=== PATIENT | male | born 1955 | race Caucasian/White ===

== ENCOUNTER 2020-05-02 09:45 | Outpatient (CLI) | payer OTHER, SELFPAY ==
--- NOTE | 2020-05-02 10:34 | ECG_ITS ---
Measurements Intervals [place] Rate: 52 P: 60 IA: 232 QRS: 10 QRSD: 105 T: 4 QT: 425 QTc: 395 Interpretive Statements SINUS BRADYCARDIA WITH FIRST DEGREE AV BLOCK DELAYED PRECORDIAL R/S TRANSITION VOLTAGE CRITERIA FOR LVH BORDERLINE T WAVE ABNORMALITY- INFERIOR LEADS ABNORMAL ECG Electronically Signed On 05-02-2020 11:35:50 STEAM ENGINEER by Juan Francisco Jett D.O.
[2020-05-02 11:16] LABS: Basophils Percent Auto 0.6 % (0.2-1.2); Eosinophils Absolute Auto 0.3 K/mm3 (0-0.3); Eosinophils Percent Auto 6.3 % (0-4.4); Hematocrit 44.6 % (42.0-52.0); Hemoglobin 15.1 g/dL (14.0-18.0); Immature Granulocyte Absolute 0.01 K/mm3 (0.00-0.031); Immature Granulocyte Percent A 0.2 % (0-0.5); Lymphocytes Absolute Auto 2.09 K/mm3 (0.9-3.2); Lymphocytes Percent Auto 38.6 % (18.3-44.2); Mean Corpuscular HGB Conc 33.9 g/dl (32-36); Mean Corpuscular Hemoglobin 31.8 pg (26-34); Mean Corpuscular Volume 93.9 fl (80-100); Mean Platelet Volume 9.2 fl (7.4-10.4); Monocytes Absolute Auto 0.5 K/mm3 (0.1-0.6); Monocytes Percent Auto 9.6 % (2.6-8.5); Neutrophils Absolute Auto 2.4 K/mm3 (1.3-6.7); Neutrophils Percent Auto 44.7 % (45.5-73.1); Platelet Count Result 191 k/mm3 (150-375); Red Blood Count 4.75 M/mm3 (4.6-6.20); Red Cell Distribution Width 12.6 % (11.5-14.5); White Blood Count 5.4 K/mm3 (4.5-10.0)
[2020-05-02 11:21] LABS: INR 0.9; Prothrombin Time 12.7 Seconds (11.1-14.7)
[2020-05-02 11:22] LABS: Partial Thromboplastin Time 27.3 SECONDS (22.3-36.8)
[2020-05-02 11:28] LABS: Alanine Aminotransferase 9 U/L (4-50); Albumin Level 4.5 g/dL (3.5-5.1); Alkaline Phosphatase 51 U/L (38-126); Anion Gap 4 mmol/L (8-16); Aspartate Amino Transferase 26 U/L (17-59); Bilirubin,Total 0.9 mg/dL (0.2-1.3); Blood Urea Nitrogen 17 mg/dL (9-20); Calcium 9.3 mg/dL (8.4-10.2); Carbon Dioxide 30 mmol/L (22-30); Chloride 103 mmol/L (98-107); Estimated Glomerular Filt Rate > 60; Glucose 94 mg/dL (75-110); Potassium 4.6 mmol/L (3.4-5.0); Sodium 137 mmol/L (137-145)
== END 2020-05-02 09:46 | disposition home or self-care (01) ==
LOC: ANHSURGERY 09:53
PROVIDERS: PCP Internal Medicine; Visit Provider Urology
DX: C61 Malignant neoplasm of prostate (principal); I10 Essential (primary) hypertension; Z01.818 Encounter for other preprocedural examination; I44.0 Atrioventricular block, first degree
CPT/HCPCS: 36415; 80053; 85025; 85610; 85730; 86850; 86900; 86901; 87086; 93005

== ENCOUNTER → 2020-05-10 00:58 | Outpatient (CLI) | payer OTHER, SELFPAY ==
[2020-05-10 19:48] LABS: SARS-CoV-2 RNA PCR Negative
== END ==
PROVIDERS: PCP Internal Medicine; Visit Provider Urology
DX: Z01.812 Encounter for preprocedural laboratory examination (principal); Z20.822 Contact with and (suspected) exposure to COVID-19
CPT/HCPCS: C9803; U0003; U0005

== ENCOUNTER 2020-05-13 13:48 | Inpatient (IN) | payer OTHER, SELFPAY ==
[2020-05-02 10:14] VITALS: BP 160/94; PULSE 56; RESP 20; TEMP 36.9; O2SAT 99; BMI 27.1
--- NOTE | 2020-05-12 14:50 | WPDANESEPPF ---
Anes - Initial Pre Proc Eval Procedure: Operation Date: 05/13/20 08:30 Proposed Procedures p Robotic Assisted Laparoscopic Prostatectomy, Possible Pelvic Lymph Node Dissection - Elton Mendoza MD Date/Time: 05/12/20 14:50 Surgeon: Elton Mendoza MD Pre Op Diagnosis: Prostate Cancer Patient Data Age: 65 Gender: M Height: 1.85 m Weight: 93.4 kg Last Vital Signs Temp 36.9 C 05/02/20 10:14 Pulse 56 L 05/02/20 10:14 Resp 20 05/02/20 10:14 BP 160/94 H 05/02/20 10:14 Pulse Ox 99 05/02/20 10:14 Allergies Allergy/AdvReac Type Severity Reaction Status Date / Time No Known Allergies Allergy Verified 05/13/20 06:54 Home Medications Medication Instructions Recorded Confirmed Type metoprolol tartrate 50 mg QAM 05/02/20 05/13/20 History Patient hx anesthesia problems: none Family hx anesthesia problems: none PMFSH Past Medical History Medical History (Updated 05/12/20 @ 14:51 by Marlon Lee MD) HTN (hypertension) Prostate CA Social History Social History Smoking packs per day: 2 Smoking cigarettes per day: 40.0 Years smoked: 11 Smoking pack-years: 22.00 Smoking status: Former smoker Second hand tobacco smoke exposure: No Additional smoking assessment comments: STATES 2PK/DAY/AGE 15 TO 26 Alcohol intake: current Drinks per week: 35 Substance use: never Substance use type: does not use Living arrangements: with family Spiritual care concerns: No Anes - Eval Final PreProcedure Day of Procedure 05/12/20 14:50 Patient weight: overweight Heart: regular rate and rhythm Lungs: clear to auscultation and normal air movement Airway: Mallampati scale class II Neurological: alert and oriented Last oral intake: >/= 8 hours ASA classification: III Emergent: no Anesthetic plan: proceed Anesthesia type and monitoring: general ETT Informed Consent: The patient's anesthetic plan and its attendant risks and benefits were discussed with the patient/family/POA. Questions were solicited and answers provided to the satisfaction of the patient/family/POA.
[2020-05-13] VITALS (12 sets, daily range): BP systolic 125–158; BP diastolic 69–92; PULSE 56–90; RESP 12–18; TEMP 35.9–36.7; O2SAT 96–100; BMI 25.8
[2020-05-13] MEDS: LACTATED RINGERS 1,000 ML 30 ML IV CONT ×2 (07:08→13:13)
--- NOTE | 2020-05-13 07:26 | WPDHPUPDATE1 ---
History and Physical Update Update Date/Time: 05/13/20 07:26 History and Physical has been reviewed, including an updated exam of the patient. There are NO changes in the patient's condition. Risks, benefits, and alternatives have been discussed and questions answered. Patient agrees to proceed with procedure. Proceed with robotic assist nerve sparing prostatectomy with possible PLND
[2020-05-13] MEDS: ceFAZolin 2 GM/D5W 50 ML 2 GM/50 ML BAG IVPB (08:28)
[2020-05-13] MEDS: BUPIVACAINE HCL 0.5% PF 30 ML VIAL INFILTRATE (09:21)
--- NOTE | 2020-05-13 12:55 | P.OP_ITS ---
Procedure Note - Detailed Date of procedure: 05/13/20 Pre-op diagnosis: Prostate Cancer Post-op diagnosis: other (Supraumbilical rectus fascia defect) Procedure performed: Robotic assisted nerve-sparing prostatectomy, repairs supraumbilical defect(hernia repair) Description of procedure: Patient is taken the operative suite and correctly identified. Once anesthesia was obtained he was placed in a low lying dorsal lithotomy position and prepped and draped usual sterile fashion. Sixteen Norwegian Martines was inserted with 20 cc. Supraumbilical incision was the made and carried down to the rectus fascia. He does have a defect just superior to the umbilicus. We state superior to that. Veress needle was inserted and 15 mmHg pressure was placed. The abdomen was then entered under direct vision using the trocar. Appropriate working ports were then placed in their locations. Patient was placed in steep Trendelenburg and the robot was docked. Posterior approach was then performed. Seminal vesicles were dissected out in their entirety vessels were transected. Space between the rectum and the prostate was developed. Bladder was taken down in a standard fashion. Space of Retzius was developed bilaterally. Dorsal venous complex was isolated using 0 Vicryl secured to the pubic bone. Bladder was then entered anteriorly. Patient had a small median lobe which was excised. We then did a nerve-sparing in the standard fashion after taking down the pedicles were clipped. Dorsal venous complex was then transected. Urethra was also transected. A Kulwant stitch was then placed using 0 Vicryl. Anastomosis was performed using V lock in a running fashion. There was good approximation mucosa mucosa. Sixteen Norwegian Martines was inserted inflated with 10 cc of sterile water. The bladder was filled with 120 cc. There is no evidence of extravasation at this time. Corby aguilar drain was then placed in the 3rd port site. This was secured. We then did a closure of the defect ( small hernia repair) using 0 Vicryl in a running fashion. The robot was undocked. The specimens brought out through the midline incision after it had been placed in Endo-Catch bag earlier. Rectus fascia was closed using 0 Vicryl. Skin was closed using subcuticular stitches. 1% lidocaine was used anesthetized skin. He is taken recovery stable condition. Anesthesia: GETA Surgeon: Elton Mendoza MD Estimated blood loss (mL): 50 Drains: Yes Packing: No Pathology: yes Complications: No immediate complications Condition: stable Disposition: PACU
--- NOTE | 2020-05-13 14:30 | ADMGEN ---
This patient, Martin Munoz, was admitted to 2 Medical Room 253-. Patient/family oriented to hospital policies and general routines including ID bracelet, bed and alarms, visiting hours, pain management, procedures, bathroom and other care routines, personal items, smoking policy, room service/diet, and visiting hours. Information on how to activate the Rapid Response Team has been discussed. Patient/Family are encouraged to report perceived risks to care and to ask questions if they do not understand what they are told or what they should do.
[2020-05-13] MEDS: MORPHINE SULFATE (*CRX) 2 MG/ML INJ 1 MG IV PUSH (15:27)
[2020-05-13] MEDS: LACTATED RINGERS 1,000 ML 125 ML IV CONT ×2 (15:27→23:20)
[2020-05-13] MEDS: ONDANSETRON INJ 4 MG/2 ML VIAL IV PUSH (15:28)
[2020-05-13] MEDS: KETOROLAC 30 MG/ML VIAL (*BKC) IV PUSH (16:34)
[2020-05-14] VITALS (7 sets, daily range): BP systolic 142–160; BP diastolic 66–88; PULSE 70–95; RESP 16–18; TEMP 36.6–37.3; O2SAT 94–97
[2020-05-14 05:08] LABS: Hemoglobin 11.3 g/dL (14.0-18.0)
[2020-05-14 05:19] LABS: Anion Gap 6 mmol/L (8-16); Blood Urea Nitrogen 16 mg/dL (9-20); Calcium 7.9 mg/dL (8.4-10.2); Carbon Dioxide 25 mmol/L (22-30); Chloride 103 mmol/L (98-107); Estimated CRCL calculation 82 ml/min; Estimated Glomerular Filt Rate > 60; Glucose 111 mg/dL (75-110); Sodium 134 mmol/L (137-145)
[2020-05-14] MEDS: HYDROcodone/acetaminophen (*CRX) 5-325 MG TABLET 1 TAB PO ×3 (05:35→17:32)
[2020-05-14] MEDS: LACTATED RINGERS 1,000 ML 125 ML IV CONT ×3 (07:22→22:58)
--- NOTE | 2020-05-14 07:50 | WPDUROPN2 ---
Progress Note: A&P Assessment and Plan (1) Prostate CA: Code(s): C61 - Malignant neoplasm of prostate Status: Acute Assessment and Plan: postoperative day 1. Doing well overall. Will continue increase activity with ambulation today. ANTONIETA with minimal output and most likely removed drained at lunchtime. This hopefully will make his right side discomfort better. If doing well later today may discharge home with Martines catheter. Subjective Subjective Date/Time Seen: 05/14/20 07:50 Post Op day: 1 (Robotic assisted nerve-sparing prostatectomy) Principal diagnosis: adenocarcinoma prostate Interval history: overall patient is doing well but does complain of some right side discomfort where the drain is. Urine output appears to be increasing this morning. Patient is up sitting in a chair at the time my visit Review of Systems Review of Systems: All systems reviewed & are unremarkable except as noted in HPI and below Exam Const: General: cooperative, alert, awake and uncomfortable ( due to discomfort and right side) Eyes: General: appearance normal, both eyes and all related structures Chest: Chest palpation & inspection: normal inspection of the chest Resp: Effort & Inspection: normal respiratory effort Cardio: Rate: regular rate Rhythm: regular rhythm GI: GI Palp: Yes Soft to palpation Urinary Catheter: Urinary Catheter: patent and draining and urine clear Objective Data Vital Signs Vital Signs: Vital Signs - 24 hr 05/13/20 13:13 05/13/20 13:25 05/13/20 13:40 Temperature 36.1 C L Pulse Rate 56 L 61 68 Respiratory Rate 14 14 12 Blood Pressure 157/80 H 151/92 H 158/91 H Pulse Oximetry 100 98 98 05/13/20 13:55 05/13/20 14:10 05/13/20 14:25 Temperature 36.0 C L Pulse Rate 61 65 62 Respiratory Rate 14 14 16 Blood Pressure 148/89 H 142/83 H 148/82 H Pulse Oximetry 96 97 97 05/13/20 14:40 05/13/20 15:10 05/13/20 16:10 Temperature 35.9 C L 36.3 C L 36.3 C L Pulse Rate 70 72 85 Respiratory Rate 18 16 16 Blood Pressure 150/86 H 146/84 H 149/87 H Pulse Oximetry 98 97 98 05/13/20 18:10 05/13/20 20:42 05/14/20 00:42 Temperature 36.7 C 36.7 C 36.9 C Pulse Rate 90 89 94 Respiratory Rate 18 18 18 Blood Pressure 154/85 H 125/69 142/66 H Pulse Oximetry 99 96 97 Intake/Output Intake/Output: Intake & Output 05/11/20 05/12/20 05/13/20 05/14/20 23:59 23:59 23:59 23:59 Intake Total 1350 1000 Output Total 128 Balance 1222 1000 Meds/Results Medications: Active Medications Generic Name Dose Route Start Last Admin Trade Name Freq PRN Reason Stop Dose Admin Hydrocodone Bitart/Acetaminophen 1 tab 05/13/20 14:57 05/14/20 05:35 Hydrocodone/Acetaminophen (*Crx) 5-325 Mg Tablet PO 1 tab Q6H PRN Administration Pain Rated 1-3 Hydrocodone Bitart/Acetaminophen 2 tab 05/13/20 14:57 Hydrocodone/Acetaminophen (*Crx) 5-325 Mg Tablet PO Q6H PRN Pain Rated 4-6 Hyoscyamine 0.125 mg 05/13/20 14:57 Hyoscyamine Sulfate 0.125 Mg Tablet SUBLINGUAL Q4H PRN Bladder Spasm Lactated Ringer's 1,000 mls @ 125 mls/hr 05/13/20 14:57 05/14/20 07:22 Lr - Lactated Ringers Iv IV CONT 125 mls/hr .Q8H NNEKA Administration Ketorolac Tromethamine 30 mg 05/13/20 14:57 05/13/20 16:34 Ketorolac 30 Mg/Ml Vial (*Bkc) IV PUSH 05/14/20 14:58 30 mg Q6H PRN Administration Pain Rated 4-6 Levofloxacin 500 mg 05/14/20 09:00 Levofloxacin Tab 500 Mg Tablet PO DAILY NNEKA Metoprolol Tartrate 50 mg 05/14/20 09:00 Metoprolol Tartrate 50 Mg Tab PO QAM NNEKA Morphine Sulfate 1 mg 05/13/20 14:57 05/13/20 15:27 Morphine Sulfate (*Crx) 2 Mg/Ml Inj IV PUSH 1 mg Q2H PRN Administration Pain Rated 7-10 Naloxone HCl 0.1 mg 05/13/20 14:57 Naloxone Hcl 0.4 Mg/Ml Vial IV PUSH Q2M PRN Opiate Reversal Ondansetron HCl 4 mg 05/13/20 14:57 05/13/20 15:28 Ondansetron Inj 4 Mg/2 Ml Vial IV PUSH 4
--- NOTE | 2020-05-14 08:02 | WPDANESPN ---
Anes - Prog Note Post-Op Date/Time: 05/14/20 08:02 Cardiovascular status: normal Respiratory status: normal Airway patency: baseline Mental status: baseline Post-Op hydration status: normal Vital Signs: Last Vital Signs Temp 36.6 C 05/14/20 04:42 Pulse 86 05/14/20 04:42 Resp 18 05/14/20 04:42 BP 159/78 H 05/14/20 04:42 Pulse Ox 96 05/14/20 04:42 Pain Score (VAS): 05/14 I/O: Intake & Output 05/13/20 05/14/20 05/14/20 23:59 07:59 15:59 Intake Total 1000 1000 Balance 1000 1000 Laboratory Tests 05/14/20 04:54 05/14/20 04:54 05/14/20 05/14/20 04:54 04:54 Hgb 11.3 L D Hct 33.0 L Sodium 134 L Potassium 4.0 Chloride 103 Carbon Dioxide 25 Anion Gap 6 L BUN 16 Creatinine 0.90 Estim Creat Clear Calc 82 Estimated GFR > 60 Glucose 111 H Calcium 7.9 L Post-procedural complaints: none Patient Feedback: Patient satisfied with anesthetic care.
[2020-05-14] MEDS: METOPROLOL TARTRATE 50 MG TAB PO (08:18)
[2020-05-14] MEDS: MORPHINE SULFATE (*CRX) 2 MG/ML INJ 1 MG IV PUSH ×2 (08:28→14:22)
--- NOTE | 2020-05-14 15:57 | PC.NURSE ---
Brii Duval on floor and pulled ANTONIETA drain to RLQ out, Economic Development Specialist placed dry dressing.
[2020-05-15 05:39] VITALS: BP 166/80; PULSE 93; RESP 20; TEMP 36.8; O2SAT 96
[2020-05-15] MEDS: LACTATED RINGERS 1,000 ML 125 ML IV CONT (07:11)
[2020-05-15 07:42] VITALS: PULSE 80
[2020-05-15] MEDS: METOPROLOL TARTRATE 50 MG TAB PO (07:42)
--- NOTE | 2020-05-15 08:51 | WPDUROPN2 ---
Progress Note: A&P Assessment and Plan (1) Prostate CA: Code(s): C61 - Malignant neoplasm of prostate Status: Acute Assessment and Plan: Okay to discharge home today. Patient's pain is well controlled today. Subjective Subjective Date/Time Seen: 05/15/20 08:51 Post Op day: 2 (Robotic assisted nerve-sparing prostatectomy) Principal diagnosis: adenocarcinoma prostate Interval history: overall patient is doing well but does complain of slight nausea but is tolerating food, his pain is much improved since the ANTONIETA drain was removed yesterday. Urine output appears clear and yellow. Patient has been up ad violet and feels good enough to go home. Review of Systems Cardiovascular: Cardiovascular: Denies chest pain Respiratory: Respiratory: Reports no additional respiratory complaints Gastrointestinal: Gastrointestinal: Reports abdominal pain (at incision sites only), Reports nausea and Denies vomiting Genitourinary: Genitourinary: Denies hematuria Exam Resp: Effort & Inspection: normal respiratory effort Cardio: Rate: regular rate GI: Inspection: incision (ANTONIETA drain incision is open, covered with dry dressing, draining scant blood) GI Palp: Yes Soft to palpation and Yes Tenderness to palpation present (GI) (at inicisons only, all are well approximated, no edema or draining present) : General: Yes no CVA tenderness Urinary Catheter: Urinary Catheter: patent and draining and urine clear Extrem: General: no edema Objective Data Vital Signs Vital Signs: Vital Signs - 24 hr 05/14/20 09:57 05/14/20 12:42 05/14/20 18:26 Temperature 98.4 F 98.4 F 98.8 F Pulse Rate 70 76 83 Respiratory Rate 16 16 18 Blood Pressure 151/83 H 160/88 H 156/79 H Pulse Oximetry 97 96 95 05/14/20 20:59 05/15/20 05:39 05/15/20 07:42 Temperature 99.1 F 98.3 F Pulse Rate 95 93 80 Respiratory Rate 18 20 Blood Pressure 155/88 H 166/80 H Pulse Oximetry 94 96 Intake/Output Intake/Output: Intake & Output 05/12/20 05/13/20 05/14/20 05/15/20 23:59 23:59 23:59 23:59 Intake Total 1350 4000 1390 Output Total 128 2790 1800 Balance 1222 1210 -410 Meds/Results Medications: Active Medications Generic Name Dose Route Start Last Admin Trade Name Freq PRN Reason Stop Dose Admin Hydrocodone Bitart/Acetaminophen 1 tab 05/13/20 14:57 05/14/20 17:32 Hydrocodone/Acetaminophen (*Crx) 5-325 Mg Tablet PO 1 tab Q6H PRN Administration Pain Rated 1-3 Hydrocodone Bitart/Acetaminophen 2 tab 05/13/20 14:57 Hydrocodone/Acetaminophen (*Crx) 5-325 Mg Tablet PO Q6H PRN Pain Rated 4-6 Hyoscyamine 0.125 mg 05/13/20 14:57 Hyoscyamine Sulfate 0.125 Mg Tablet SUBLINGUAL Q4H PRN Bladder Spasm Lactated Ringer's 1,000 mls @ 125 mls/hr 05/13/20 14:57 05/15/20 07:11 Lr - Lactated Ringers Iv IV CONT 125 mls/hr .Q8H NNEKA Administration Levofloxacin 500 mg 05/14/20 09:00 05/15/20 07:42 Levofloxacin Tab 500 Mg Tablet PO 500 mg DAILY NNEKA Administration Metoprolol Tartrate 50 mg 05/14/20 09:00 05/15/20 07:42 Metoprolol Tartrate 50 Mg Tab PO 50 mg QAM NNEKA Administration Morphine Sulfate 1 mg 05/13/20 14:57 05/14/20 14:22 Morphine Sulfate (*Crx) 2 Mg/Ml Inj IV PUSH 1 mg Q2H PRN Administration Pain Rated 7-10 Naloxone HCl 0.1 mg 05/13/20 14:57 Naloxone Hcl 0.4 Mg/Ml Vial IV PUSH Q2M PRN Opiate Reversal Ondansetron HCl 4 mg 05/13/20 14:57 05/13/20 15:28 Ondansetron Inj 4 Mg/2 Ml Vial IV PUSH 4 mg Q6H PRN Administration Nausea And Vomiting
--- NOTE | 2020-05-15 09:03 | PM.DS ---
DS: Admitting Diagnosis Admitting Diagnosis Admitting Diagnosis: Prostate Cancer DS: Discharge Diagnosis Discharge Diagnosis (1) Prostate CA: Code(s): C61 - Malignant neoplasm of prostate Status: Acute DS: Summary Hospital Course Hospital Course: See below. Time Spent with Patient Time attestation: Patient underwent a Robotic assisted nerve-sparing prostatectomy on 05/13/[address] Colby Mendoza. He tolerated the procedure well and went to recovery in stable condition. He then was transferred to the floor for further obsveration. Post operative day one, came with nausea and moderate abdominal pain that was mildly controlled with Morphine. His ANTONIETA drain was putting out very little bloody drainage therefore was removed in the afternoon of 05/14/2020. He did much better overnight after the drain was removed with pain. He is able to tolerate his diet better today and is passing flatus. His catheter is draining well and he has been up ad violet. He will be discharged home today to resume previous home medications in addition to Hydrocodone, Levsin, Bactrim and Ondansetron. He is to avoid straining with activity as tolerated, diet as tolerated. Exam Resp: Effort & Inspection: normal respiratory effort Cardio: Rate: regular rate GI: GI Palp: Yes abdominal tenderness, No Soft to palpation and Yes Tenderness to palpation present (GI) : General: Yes no CVA tenderness Urinary Catheter: Urinary Catheter: patent and draining and urine clear Extrem: General: no edema DS: Data Data Completed and Pending Pending studies at discharge: Pending at discharge 05/13/20 12:41 Surgical [PTH] Routine Discharge Plan Discharge Attending physician on discharge: Elton Mendoza Discharging Clinician: Brii Duval Anticipated Discharge Date/Time: 05/15/20 08:55 Patient Disposition: Home, Self-Care Activity: may shower, no straining and may drive after 2 weeks Diet: as tolerated Wound Care Instructions: keep dressing dry and change dressing daily Discharge Instructions: Follow up for Cystogram next week on 05/20/2020 at 9:30am, the Cystogram will be performed at 10am. You will go to Radiology to have your Cystogram done at the [facility]. After your Cystogram, come to the office for catheter removal pending cystogram results. Keep drain incision clean with soap and water and pat dry with a towel. Apply a clean, dry, dressing after each shower and as needed when saturated. Ok to get catheter wet and to wash catheter where it inserts into the penis. Call if you develop a fever >101 degrees, blood in your urine, cloudy or malodorous urine, incisional drainage or edema/redness. Do not immerse your body in water such as: hot tubs, swimming pools or bath tubs until further notified. Do not drive on pain medication and for two weeks. Do not do any heavy lifting or straining. Patient Instructions: Antibiotic Form Stand Alone Forms: General Discharge Information Follow-up/Referrals: Elton Mendoza MD [Physician] - Discharge Medications: New hydrocodone-acetaminophen 5-325 mg tablet 1 tablet PO Q6H PRN (Reason: pain) Qty: 20 RF: 0 hyoscyamine sulfate [Anaspaz] 0.125 mg Tablet,Disintegrating 0.125 mg sublingual Q4H PRN (Reason: Bladder Spasm) Qty: 20 RF: 0 sulfamethoxazole-trimethoprim [Bactrim DS] 800-160 mg tablet 1 tablet PO DAILY Qty: 5 RF: 0 ondansetron 4 mg tablet,disintegrating 4 mg PO Q8H PRN (Reason: nausea and vomiting) Qty: 10 RF: 0 Continued metoprolol tartrate 50 mg tablet 50 mg QAM RF: 0 Date of admission: 05/13/20 13:48 Primary Care Provider: Tony,Myke Lopez Admitting Provider: Elton Mendoza Attending physician on admission: Elton Mendoza Condition: Stable
== END 2020-05-15 10:40 | disposition home or self-care (01) | DRG 708 ==
LOC: ANH2MED 14:38
PROVIDERS: Admitting Provider Urology; PCP Internal Medicine; Visit Provider Urology
PROC: 0VT04ZZ Resection of Prostate, Percutaneous Endoscopic Approach (ICD-10-PCS; CPT 55867; principal; 2020-05-13 08:30)
DX: C61 Malignant neoplasm of prostate (principal); K43.9 Ventral hernia without obstruction or gangrene; I10 Essential (primary) hypertension; Z87.891 Personal history of nicotine dependence
CPT/HCPCS: 36415; 80048; 85014; 85018; 88307; 88309; A9270; C9803; J0690; J1100; J1170; J1885; J2250; J2270; J2405; J2704; J2710; J3010; J7030; J7120; Q9968; U0003; U0005

== ENCOUNTER 2020-05-20 09:41 | Outpatient (CLI) | payer OTHER, SELFPAY ==
--- NOTE | ~2020-05-20 | XR_ITS ---
EXAMINATION: XR cystogram EXAM DATE: 05/20/2020 10:49 INDICATION: Prostate cancer. TECHNIQUE: Fluoroscopy used during XR cystogram performed through Martines catheter in place on patient arrival. Dose reduction digital pulsed fluoroscopy was used at 4 frames per second with DAP 33 Gycm2 . No prior study. FINDINGS: Contrast infused through Martines catheter. Patient tolerated approximately 250 mL of contras t infusion without feeling discomfort. There was no contrast extravasation. Post void images were attempted including obliques, but patient never drained his bladder. Potentiall y the tip and side-port both may have been temporarily positionally blocked, or patient could have at [place] or neurogenic bladder. Patient did not feel his bladder distended during these images. Consider r epositioning Martines to see if there is additional drainage. Clinically correlate. Incidental note made of extensive subcutaneous emphysema throughout the thighs and anterior aspect of the abdominal wall subcutaneous fat (see oblique KUB images). Postoperative? IMPRESSION: 1. No contrast extravasation. 2. Pear-shaped distended bladder which did not empty. See above. 3. Extensive subcutaneous emphysema along size, lower abdomen. Reviewed, dictated and finalized at location A.
== END 2020-05-20 09:42 | disposition home or self-care (01) ==
PROVIDERS: PCP Internal Medicine; Visit Provider Urology
DX: C61 Malignant neoplasm of prostate (principal)
CPT/HCPCS: 51600; 74430; Q9967

== ENCOUNTER → 2021-03-23 09:49 | Outpatient (REF) | payer OTHER, SELFPAY | LOC: ANHLAB 09:49 | PROVIDERS: PCP Internal Medicine; Visit Provider Nurse Practitioner | DX: C44.311 Basal cell carcinoma of skin of nose (principal) | CPT/HCPCS: 88305; 88331 ==

== ENCOUNTER 2024-02-08 05:49 | Emergency (ER) | payer MEDICARE, SELFPAY ==
--- NOTE | ~2024-02-08 | CT_ITS ---
CT of the Abdomen and Pelvis: Indication: Abdominal pain Technique: 2.5 mm axial scans were obtained through the abdomen and pelvis following intravenous adm inistration of 100 cc of Omnipaque 350. Dose reduction technique was used on this scan by utilizing a utomated exposure control and iterative reconstruction technique. The dose-length product (DLP) was 7 12.11 mGy-cm. Findings: Scans through the lung bases demonstrate mild bibasilar atelectatic changes. There is diffuse hepatic steatosis. The spleen, pancreas, gallbladder, adrenals and kidneys are withi n normal limits. No evidence of aortic aneurysm. No lymphadenopathy. No bowel obstruction. Probable wall thickening of the gastric antrum/proximal duodenum. Images through the pelvis were performed. Urinary bladder unremarkable. Probable prostatectomy. No pe lvic mass seen. No ascites. Small fat-containing right inguinal hernia. Impression: Probable wall thickening of the gastric antrum/proximal duodenum. Correlate for gastritis, or possibl y peptic ulcer disease. Diffuse hepatic steatosis. Small fat-containing right inguinal hernia. Probable prior prostatectomy. Reviewed, dictated and finalized at location . [employer] Impression: Probable wall thickening of the gastric antrum/proximal duodenum. Correlate for gastritis, or possibly peptic ulcer disease. Diffuse hepatic steatosis. Small fat-containing right inguinal hernia. Probable prior prostatectomy.
[2024-02-08 05:52] VITALS: BP 175/97; PULSE 85; RESP 16; TEMP 36.1; O2SAT 97
[2024-02-08 06:26] LABS: Basophils Percent Auto 0.3 % (0.2-1.2); Eosinophils Percent Auto 0.1 % (0-4.4); Hematocrit 46.4 % (42.0-52.0); Hemoglobin 15.9 g/dL (14.0-18.0); Immature Granulocyte Absolute 0.04 K/mm3 (0.00-0.031); Immature Granulocyte Percent A 0.4 % (0-0.5); Lymphocytes Absolute Auto 1.38 K/mm3 (0.9-3.2); Lymphocytes Percent Auto 14.1 % (18.3-44.2); Mean Corpuscular HGB Conc 34.3 g/dl (32-36); Mean Corpuscular Hemoglobin 32.3 pg (26-34); Mean Corpuscular Volume 94.1 fl (80-100); Mean Platelet Volume 9.1 fl (7.4-10.4); Monocytes Percent Auto 9.7 % (2.6-8.5); Neutrophils Absolute Auto 7.4 K/mm3 (1.3-6.7); Neutrophils Percent Auto 75.4 % (45.5-73.1); Platelet Count Result 222 k/mm3 (150-375); Red Blood Count 4.93 M/mm3 (4.6-6.20); Red Cell Distribution Width 12.5 % (11.5-14.5); White Blood Count 9.8 K/mm3 (4.5-10.0)
[2024-02-08 06:39] LABS: Alanine Aminotransferase 13 U/L (6-50); Albumin Level 4.7 g/dL (3.5-5.1); Alkaline Phosphatase 61 U/L (38-126); Anion Gap 9 mmol/L (4-12); Aspartate Amino Transferase 23 U/L (17-59); Bilirubin,Total 1.1 mg/dL (0.2-1.3); Blood Urea Nitrogen 16 mg/dL (9-20); Calcium 9.2 mg/dL (8.4-10.2); Carbon Dioxide 24 mmol/L (22-30); Chloride 103 mmol/L (98-107); Estimated CRCL calculation 87 ml/min; Estimated Glomerular Filt Rate > 60; Glucose 134 mg/dL (65-110); Lipase 41 U/L (23-300); Potassium 3.7 mmol/L (3.4-5.0); Sodium 136 mmol/L (137-145)
--- NOTE | 2024-02-08 06:43 | ED.GENADULT ---
HPI - General Adult General Chief complaint: Abdominal Pain <Jose Bravo MD - Last Filed: 02/08/24 06:44> Stated complaint: abd pain/N/V <Jose Bravo MD - Last Filed: 02/08/24 06:44> Time Seen by Provider: 02/08/24 06:35 <Jose Bravo MD - Last Filed: 02/08/24 06:44> History of Present Illness HPI narrative: Patient is a 69-year-old gentleman presents emergency department chief complaint of nausea vomiting and abdominal pain. Patient reports for the last several days he has had discomfort in his epigastric region the patient reports that he has had multiple bouts of vomiting and reports he has not been able to keep anything down. Patient reports his last bowel movement was several days ago reports no diarrhea reports prior surgical history significant for prostatectomy reports he has history of high cholesterol and hypertension. <Jose Bravo MD - Last Filed: 02/08/24 06:44> Patient is a 69-year-old gentleman presents to the emergency department chief complaint of nausea vomiting and abdominal pain. Patient reports for the last several days he has had discomfort in his epigastric region the patient reports that he has had multiple bouts of vomiting and reports he has not been able to keep anything down. Patient reports his last bowel movement was several days ago reports no diarrhea reports prior surgical history significant for prostatectomy reports he has history of high cholesterol and hypertension. <Chester Friedman MD - Last Filed: 02/08/24 18:36> Related Data Home medications: Home Medications Medication Instructions Recorded Confirmed metoprolol tartrate 50 mg tablet 50 mg QAM 05/02/20 05/13/20 <oJse Bravo MD - Last Filed: 02/08/24 06:44> Allergies/adverse reactions: Allergies Allergy/AdvReac Type Severity Reaction Status Date / Time No Known Allergies Allergy Verified 02/08/24 05:50 <Jose Bravo MD - Last Filed: 02/08/24 06:44> Review of Systems Review of Systems: A 10 system review of systems was completed on the patient and is negative except for what is stated in the HPI. Nursing and ancillary documentation was reviewed. <Jose Bravo MD - Last Filed: 02/08/24 06:44> PMFSH Past Medical History Medical History: Medical History HTN (hypertension) Prostate CA <Jose Bravo MD - Last Filed: 02/08/24 06:44> Social History Social History: Social History Smoking packs per day: 2 Smoking cigarettes per day: 40.0 Years smoked: 11 Smoking pack-years: 22.00 Smoking status: Former smoker Second hand tobacco smoke exposure: No Additional smoking assessment comments: STATES 2PK/DAY/AGE 15 TO 26 Alcohol intake: current Drinks per week: 5 Substance use: never Substance use type: does not use Living arrangements: with family Gender identity (if verbalized by the patient): Male Spiritual care concerns: No <Jose Bravo MD - Last Filed: 02/08/24 06:44> Exam Narrative: GENERAL: Well-appearing, well-nourished, and in no acute distress. HEAD: Normocephalic, atraumatic. EYES: PERRLA and EOMI. ENT: Nares clear, no rhinorrhea or epistaxis. Mucous membranes moist. NECK: Supple. CHEST: Clear to auscultation. No respiratory distress. HEART: Regular rate and rhythm. No murmur heard. Normal peripheral pulses. ABDOMEN: Soft, tenderness to palpation in the epigastric region, nondistended, normal active bowel sounds. EXTREMITIES: Normal range of motion. No edema. SKIN: Warm, dry, no rash. NEURO: No focal deficits. Alert and oriented x3. PSYCH: Normal mood and affect. <Jose Bravo MD - Last Filed: 02/08/24 06:44> Course Vital Signs Vital signs: Vital Signs Temperature 97.0 F L 02/08/24 05:52 Pulse Rate 85 02/08/24 05:52 Respiratory Rate 16 02/08/24 05:52 Blood Pressure 175/97 H 02/08/24 05:52 Pulse Oximetry 97 02/08/24 05:52 Oxygen Delivery Room Air 02/08/24 05:52 Temperature 97.0 F L 02/08/24 05:52 Pulse Rate 71 02/08/24 08:34 Respiratory Rate 18 02/08/24 08:34 Blood Pressure 164/96 H 02/08/24 08:34 Pulse Oximetry 99 02/08/24 08:34 Oxygen Delivery Room Air 02/08/24 05:52 <Jose Bravo MD - Last Filed: 02/08/24 06:44> Vital Signs Temperature 97.0 F L 02/08/24 05:52 Pulse Rate 85 02/08/24 05:52 Respiratory Rate 16 02/08/24 05:52 Blood Pressure 175/97 H 02/08/24 05:52 Pulse Oximetry 97 02/08/24 05:52 Oxygen Delivery Room Air 02/08/24 05:52 Temperature 97.0 F L 02/08/24 05:52 Pulse Rate 71 02/08/24 08:34 Respiratory Rate 18 02/08/24 08:34 Blood Pressure 164/96 H 02/08/24 08:34 Pulse Oximetry 99 02/08/24 08:34 Oxygen Delivery Room Air 02/08/24 05:52 <Chester Friedman MD - Last Filed: 02/08/24 18:36> Medical Decision Making MDM Narrative Medical decision making narrative: 69-year-old male presents emergency department for evaluation for abdominal pain. Patient care was signed out to me with CT pending. Patient is afebrile with no leukocytosis and hemoglobin of 15.9, patient has no significant abnormalities on the CMP and UA was negative for infection but did have some mild hematuria and ketones, CT scan showed evidence of gastritis. Patient family updated the results of the workup and patient was started on omeprazole at home. <Chester Friedman MD - Last Filed: 02/08/24 18:36> Vital Signs Vital Signs: Vital Signs Temperature 97.0 F L 02/08/24 05:52 Pulse Rate 85 02/08/24 05:52 Respiratory Rate 16 02/08/24 05:52 Blood Pressure 175/97 H 02/08/24 05:52 Pulse Oximetry 97 02/08/24 05:52 Oxygen Delivery Room Air 02/08/24 05:52 Temperature 97.0 F L 02/08/24 05:52 Pulse Rate 71 02/08/24 08:34 Respiratory Rate 18 02/08/24 08:34 Blood Pressure 164/96 H 02/08/24 08:34 Pulse Oximetry 99 02/08/24 08:34 Oxygen Delivery Room Air 02/08/24 05:52 <Jose Bravo MD - Last Filed: 02/08/24 06:44> Vital Signs Temperature 97.0 F L 02/08/24 05:52 Pulse Rate 85 02/08/24 05:52 Respiratory Rate 16 02/08/24 05:52 Blood Pressure 175/97 H 02/08/24 05:52 Pulse Oximetry 97 02/08/24 05:52 Oxygen Delivery Room Air 02/08/24 05:52 Temperature 97.0 F L 02/08/24 05:52 Pulse Rate 71 02/08/24 08:34 Respiratory Rate 18 02/08/24 08:34 Blood Pressure 164/96 H 02/08/24 08:34 Pulse Oximetry 99 02/08/24 08:34 Oxygen Delivery Room Air 02/08/24 05:52 <Chester Friedman MD - Last Filed: 02/08/24 18:36> Lab Data Result diagrams: 02/08/24 06:19 02/08/24 06:19 <Jose Bravo MD - Last Filed: 02/08/24 06:44> Labs: Lab Results 02/08/24 02/08/24 Range/Units 06:18 06:19 WBC 9.8 (4.5-10.0) K/mm3 RBC 4.93 (4.6-6.20) M/mm3 Hgb 15.9 D (14.0-18.0) g/dL Hct 46.4 (42.0-52.0) % MCV 94.1 (80-100) fl MCH 32.3 (26-34) pg MCHC 34.3 (32-36) g/dl RDW 12.5 (11.5-14.5) % Plt Count 222 (150-375) k/mm3 MPV 9.1 (7.4-10.4) fl Immature Gran % (Auto) 0.4 (0-0.5) % Neut % (Auto) 75.4 H (45.5-73.1) % Lymph % (Auto) 14.1 L (18.3-44.2) % [place] % (Auto) 9.7 H (2.6-8.5) % Eos % (Auto) 0.1 (0-4.4) % Baso % (Auto) 0.3 (0.2-1.2) % Lymph # (Auto) 1.38 (0.9-3.2) K/mm3 [place] # (Auto) 1.0 H (0.1-0.6) K/mm3 Eos # (Auto) 0.0 (0-0.3) K/mm3 Baso # (Auto) 0.0 (0.0-0.1) K/mm3 Abs Immat Gran (auto) 0.04 H (0.00-0.031) K/mm3 Absolute Neuts (auto) 7.4 H (1.3-6.7) K/mm3 Absolute Nucleated RBC 0.000 (0.0-0.012) K/mm3 Nucleated RBC % 0.0 (0.0-0.2) % Sodium 136 L (137-145) mmol/L Potassium 3.7 (3.4-5.0) mmol/L Chloride 103 (98-107) mmol/L Carbon Dioxide 24 (22-30) mmol/L Anion Gap 9 (4-12) mmol/L BUN 16 (9-20) mg/dL Creatinine 0.80 (0.7-1.3) mg/dL Estim Creat Clear Calc 87 ml/min Estimated GFR > 60 (59 - ) Glucose 134 H (65-110) mg/dL Calcium 9.2 (8.4-10.2) mg/dL Total Bilirubin 1.1 (0.2-1.3) mg/dL AST 23 (17-59) U/L ALT 13 (6-50) U/L Alkaline Phosphatase 61 (38-126) U/L Total Protein 7.0 (6.3-8.2) g/dL Albumin 4.7 (3.5-5.1) g/dL Lipase 41 (23-300) U/L Urine Color Yellow (Yellow) Urine Appearance Clear (Clear) Urine pH 5.5 (5.0-9.0) Ur Specific [place] 1.028 (1.001-1.035) Urine Protein 1+ H (Negative) mg/dL Urine Glucose (UA) Negative (Negative) mg/dL Urine Ketones 3+ H (Negative) mg/dL Ur Blood (Man) Negative (Negative) Urine Nitrate Negative (Negative) Urine Bilirubin Negative (Negative) Urine Urobilinogen 1.0 (<2.0) mg/dL Leukocyte Esterase Rfl Negative (Negative) LEXY/UL Urine RBC 3-5 H (0-2) /hpf Urine WBC 0-5 (0-3) /hpf Ur Squamous Epith Cells None seen (Few) /hpf Urine Bacteria None seen /hpf Urine Casts 0-2 <Jose Bravo MD - Last Filed: 02/08/24 06:44> Lab Results 02/08/24 02/08/24 Range/Units 06:18 06:19 WBC 9.8 (4.5-10.0) K/mm3 RBC 4.93 (4.6-6.20) M/mm3 Hgb 15.9 D (14.0-18.0) g/dL Hct 46.4 (42.0-52.0) % MCV 94.1 (80-100) fl MCH 32.3 (26-34) pg MCHC 34.3 (32-36) g/dl RDW 12.5 (11.5-14.5) % Plt Count 222 (150-375) k/mm3 MPV 9.1 (7.4-10.4) fl Immature Gran % (Auto) 0.4 (0-0.5) % Neut % (Auto) 75.4 H (45.5-73.1) % Lymph % (Auto) 14.1 L (18.3-44.2) % [place] % (Auto) 9.7 H (2.6-8.5) % Eos % (Auto) 0.1 (0-4.4) % Baso % (Auto) 0.3 (0.2-1.2) % Lymph # (Auto) 1.38 (0.9-3.2) K/mm3 [place] # (Auto) 1.0 H (0.1-0.6) K/mm3 Eos # (Auto) 0.0 (0-0.3) K/mm3 Baso # (Auto) 0.0 (0.0-0.1) K/mm3 Abs Immat Gran (auto) 0.04 H (0.00-0.031) K/mm3 Absolute Neuts (auto) 7.4 H (1.3-6.7) K/mm3 Absolute Nucleated RBC 0.000 (0.0-0.012) K/mm3 Nucleated RBC % 0.0 (0.0-0.2) % Sodium 136 L (137-145) mmol/L Potassium 3.7 (3.4-5.0) mmol/L Chloride 103 (98-107) mmol/L Carbon Dioxide 24 (22-30) mmol/L Anion Gap 9 (4-12) mmol/L BUN 16 (9-20) mg/dL Creatinine 0.80 (0.7-1.3) mg/dL Estim Creat Clear Calc 87 ml/min Estimated GFR > 60 (59 - ) Glucose 134 H (65-110) mg/dL Calcium 9.2 (8.4-10.2) mg/dL Total Bilirubin 1.1 (0.2-1.3) mg/dL AST 23 (17-59) U/L ALT 13 (6-50) U/L Alkaline Phosphatase 61 (38-126) U/L Total Protein 7.0 (6.3-8.2) g/dL Albumin 4.7 (3.5-5.1) g/dL Lipase 41 (23-300) U/L Urine Color Yellow (Yellow) Urine Appearance Clear (Clear) Urine pH 5.5 (5.0-9.0) Ur Specific [place] 1.028 (1.001-1.035) Urine Protein 1+ H (Negative) mg/dL Urine Glucose (UA) Negative (Negative) mg/dL Urine Ketones 3+ H (Negative) mg/dL Ur Blood (Man) Negative (Negative) Urine Nitrate Negative (Negative) Urine Bilirubin Negative (Negative) Urine Urobilinogen 1.0 (<2.0) mg/dL Leukocyte Esterase Rfl Negative (Negative) LEXY/UL Urine RBC 3-5 H (0-2) /hpf Urine WBC 0-5 (0-3) /hpf Ur Squamous Epith Cells None seen (Few) /hpf Urine Bacteria None seen /hpf Urine Casts 0-2 <Chester Friedman MD - Last Filed: 02/08/24 18:36> Discharge Plan Discharge Clinical Impression: Abdominal pain <Jose Bravo MD - Last Filed: 02/08/24 06:44> Patient Disposition: Home, Self-Care <Jose Bravo MD - Last Filed: 02/08/24 06:44> Condition: Stable <Jose Bravo MD - Last Filed: 02/08/24 06:44> Instructions: Antibiotic Form, Gastritis (DC), Diet for Stomach Ulcers and Gastritis (ED), Abdominal Pain (ED) <Jose Bravo MD - Last Filed: 02/08/24 06:44> Additional Instructions: Omeprazole as directed for the next 14 days. Have close follow-up with your primary care physician. <Jose Bravo MD - Last Filed: 02/08/24 06:44> Prescriptions: New omeprazole 20 mg capsule,delayed release(DR/EC) 20 mg PO DAILY 14 Days Qty: 14 0RF ondansetron 4 mg tablet,disintegrating 4 mg PO Q8H PRN (Reason: nausea and vomiting) Qty: 14 0RF No Action metoprolol tartrate 50 mg tablet 50 mg QAM hyoscyamine sulfate [Anaspaz] 0.125 mg Tablet,Disintegrating 0.125 mg sublingual Q4H PRN (Reason: Bladder Spasm) Qty: 20 0RF ondansetron 4 mg tablet,disintegrating 4 mg PO Q8H PRN (Reason: nausea and vomiting) Qty: 10 0RF sulfamethoxazole-trimethoprim [Bactrim DS] 800-160 mg tablet 1 tablet PO DAILY Qty: 5 0RF hydrocodone-acetaminophen 5-325 mg tablet 1 tablet PO Q6H PRN (Reason: pain) Qty: 20 0RF <Jose Bravo MD - Last Filed: 02/08/24 06:44> Follow-up/Referrals: Tony,Myke Lopez MD [Primary Care Provider] - <Jose Bravo MD - Last Filed: 02/08/24 06:44>
[2024-02-08 06:59] LABS: Add Urine Microscopic? YES; Appearance Urine Clear (Clear); Bacteria Urine None Seen /hpf; Bilirubin Urine Negative (Negative); Blood Urine Negative (Negative); Color Urine Yellow (Yellow); Glucose Urine UA Negative (Negative); Ketones Urine 3+ mg/dL (Negative); Leukocyte Esterase Ur Negative LEU/UL (Negative); Nitrate Urine Negative (Negative); Non Pathogenic Casts 0-2; Protein Urine 1+ mg/dL (Negative); Specific Grav Ur 1.028 (1.001-1.035); Squamous Epithelial Cell Urine None Seen /hpf (Few); WBC Urine 0-5 /hpf (0-3); pH Urine 5.5 (5.0-9.0)
[2024-02-08] MEDS: ONDANSETRON INJ 4 MG/2 ML VIAL IV PUSH (07:04)
[2024-02-08] MEDS: SODIUM CHLORIDE 0.9% IV 1,000 ML 999 ML IV CONT (07:04)
[2024-02-08] MEDS: DICYCLOMINE HCL INJ 20 MG/2 ML VIAL IM (07:05)
[2024-02-08] MEDS: PANTOPRAZOLE SODIUM IV 40 MG VIAL IV PUSH (08:05)
[2024-02-08] MEDS: FAMOTIDINE 20 MG/2 ML VIAL IV PUSH (08:05)
[2024-02-08 08:34] VITALS: BP 164/96; PULSE 71; RESP 18; O2SAT 99
== END 2024-02-08 08:40 | disposition home or self-care (01) ==
PROVIDERS: Emergency Provider Emergency Medicine; PCP Internal Medicine
DX: R10.13 Epigastric pain (principal); I10 Essential (primary) hypertension; Z85.46 Personal history of malignant neoplasm of prostate; Z87.891 Personal history of nicotine dependence; K76.0 Fatty (change of) liver, not elsewhere classified; R93.3 Abnormal findings on diagnostic imaging of other parts of digestive tract; K40.90 Unilateral inguinal hernia, without obstruction or gangrene, not specified as recurrent
CPT/HCPCS: 36415; 74177; 80053; 81001; 83690; 85025; 96361; 96372; 96374; 96375; 99284; J0500; J2405; J2470; J7030; Q9967